=== PATIENT | male | born 1995 | race Hispanic/Latino ===

== ENCOUNTER 2018-02-10 02:04 | Emergency (ER) | payer SELFPAY ==
[2018-02-10] MEDS ORDERED: CLINDAMYCIN 600MG/D5W 600 MG/50 ML BAG IV ONE (02:56)
[2018-02-10 02:58] LABS: Absolute Lymphocytes (CBC) 2.2 K/uL (0.7-4.9); Absolute Neutrophil 8.6 K/uL (1.8-8.0); Basophils % 0.8 % (0-1.3); Eosinophils % 3.1 % (0-4.4); Hematocrit 44.6 % (39.6-49.0); Lymphocytes % 17.8 % (15.3-44.8); MPV 9.4 fL (7.6-11.3); Monocytes % 7.9 % (3.3-12.3); RBC Red Blood Cell Count 5.55 M/uL (4.33-5.43)
[2018-02-10 03:30] LABS: ALT/SGPT 26 U/L (12-78); AST/SGOT 18 U/L (15-37); Albumin 3.6 g/dL (3.4-5.0); Alkaline Phosphatase 95 U/L (45-117); BUN Blood Urea Nitrogen 21 mg/dL (7-18); Bicarbonate 25 mmol/L (21-32); Bilirubin Direct < 0.1 mg/dL (0-0.2); Bilirubin Total 0.2 mg/dL (0.2-1.0); Glucose Level 108 mg/dL (74-106); Potassium 4.4 mmol/L (3.5-5.1); Protein, Total 7.4 g/dL (6.4-8.2); Sodium Level 140 mmol/L (136-145)
--- NOTE | 2018-02-10 04:12 | EDPHYS ---
Physician Documentation [facility] Name: Anjum Farmer Age: 22 yrs Sex: Male : 1995 Arrival Date: 02/10/2018 Time: 02:07 Bed 5 Private MD: ED Physician Hany Saavedra HPI: 02/10 05:08 This 22 yrs old Male presents to ER via Wheelchair with complaints of Foot tw4 Injury, in a lot of pain. 05:08 The patient presents with an injury. The complaints affect the left foot. Context: The tw4 problem was sustained at work, resulted from a heavy object falling, industrial equipment, the patient can partially bear weight. Modifying factors: The symptoms are alleviated by nothing, the symptoms are aggravated by. Associated signs and symptoms: The patient has no apparent associated signs or symptoms. The patient has not experienced similar symptoms in the past. Historical: - Allergies: 02:24 No Known Allergies; jd3 - Home Meds: 02:24 None [Active]; jd3 - PMHx: 02:24 None; jd3 - PSHx: 02:24 None; jd3 - Immunization history:: Adult Immunizations unknown, Last tetanus immunization: unknown. - Social history:: Smoking status: Patient uses tobacco products, smokes one pack cigarettes per day. - Ebola Screening: : Patient negative for fever greater than or equal to 101.5 degrees Fahrenheit, and additional compatible Ebola Virus Disease symptoms. ROS: 05:08 MS/extremity: Positive for injury or acute deformity, contusion, decreased range of tw4 motion, Negative for abrasion. 05:08 Constitutional: Negative for fever, chills, and weight loss, Cardiovascular: Negative for chest pain, palpitations, and edema, Respiratory: Negative for shortness of breath, cough, wheezing, and pleuritic chest pain, Abdomen/GI: Negative for abdominal pain, nausea, vomiting, diarrhea, and constipation, Back: Negative for injury and pain, Neuro: Negative for headache, weakness, numbness, tingling, and seizure, Psych: Negative for depression, anxiety, suicide ideation, homicidal ideation, and hallucinations. 05:08 MS/extremity: Positive for Exam: 05:08 Constitutional: This is a well developed, well nourished patient who is awake, alert, tw4 and in no acute distress. Head/Face: Normocephalic, atraumatic. Chest/axilla: Normal chest wall appearance and motion. Nontender with no deformity. No lesions are appreciated. Cardiovascular: Regular rate and rhythm with a normal S1 and S2. No gallops, murmurs, or rubs. Normal PMI, no JVD. No pulse deficits. Respiratory: Lungs have equal breath sounds bilaterally, clear to auscultation and percussion. No rales, rhonchi or wheezes noted. No increased work of breathing, no retractions or nasal flaring. Abdomen/GI: Soft, non-tender, with normal bowel sounds. No distension or tympany. No guarding or rebound. No evidence of tenderness throughout. 05:08 Musculoskeletal/extremity: Extremities: grossly normal except: noted in the right fifth toe and Right fifth toenail: contusion, pain. 05:08 Musculoskeletal/extremity: Extremities: decreased ROM, erythema. tw4 Vital Signs: 02:25 BP 169 / 105; Pulse 105; Resp 16 S; Temp 97.8(O); Pulse Ox 97% on R/A; Weight 99.79 kg jd3 (R); Height 5 ft. 10 in. (177.80 cm) (R); Pain 2/10; 03:25 BP 159 / 89; Pulse 93; Resp 17 S; Pulse Ox 100% on R/A; jd3 04:12 BP 149 / 92; Pulse 95; Resp 17 S; Pulse Ox 97% on R/A; jd3 02:25 Body Mass Index 31.57 (99.79 kg, 177.80 cm) jd3 MDM: 02:12 Patient medically screened. tw4 05:08 Differential diagnosis: fracture, penetrating trauma, cellulitis. Data reviewed: vital tw4 signs, nurses notes. Data interpreted: Pulse oximetry: Interpretation: normal. 05:19 Counseling: I had a detailed discussion with the patient and/or guardian regarding: the tw4 historical points, exam findings, and any diagnostic results supporting the discharge/admit diagnosis. Special discussion: I discussed with the patient/guardian in detail that at this point there is no indication for admission to the hospital. It is understood, however, that if the symptoms persist or worsen the patient needs to return immediately for re-evaluation. 02/10 02:29 Order name: Basic Metabolic Panel tw4 02/10 02:29 Order name: Blood Culture Adult (2) tw4 02/10 02:29 Order name: CBC with Diff; Complete Time: 04:12 tw4 02/10 04:12 Interpretation: Normal except: WBC 12.2; RBC 5.55; MCH 26.6. tw4 02/10 02:29 Order name: Lactate tw4 02/10 02:29 Order name: LFT's; Complete Time: 04:12 tw4 02/10 04:12 Interpretation: Normal except: GLOB 3.8; A/G 0.9. tw4 02/10 02:29 Order name: Procalcitonin tw4 02/10 02:23 Order name: XRAY Foot RIGHT 2 View jd3 02/10 02:29 Order name: EKG - Nurse/Tech; Complete Time: 02:42 tw4 02/10 02:29 Order name: IV Saline Lock - Large Bore; Complete Time: 02:42 tw4 02/10 02:29 Order name: Labs collected and sent; Complete Time: 02:42 tw4 Administered Medications: 02:51 Drug: Clindamycin 600 mg Route: IVPB; Infused Over: 30 mins; Site: right antecubital; aa1 04:43 Follow up: Response: No adverse reaction; IV Status: Completed infusion ca1 04:24 Drug: TORadol 30 mg Route: IVP; Site: right antecubital; jd3 04:44 Follow up: Response: No adverse reaction ca1 Disposition: 02/10/18 04:11 Discharged to Home. Impression: Cellulitis of right lower limb. - Condition is Stable. - Discharge Instructions: Cellulitis, Adult, [id number]. - Prescriptions for Cleocin 300 mg Oral Capsule - take 1 capsule by ORAL route every 6 hours for 10 days; 40 capsule. - Medication Reconciliation Form, Thank You Letter, Antibiotic Education, Prescription Opioid Use form. - Follow up: Private Physician; When: Upon discharge from the Emergency Department; Reason: If symptoms return, Recheck today's complaints, Continuance of care. - Problem is new. - Symptoms have improved. Signatures: Dispatcher [employer] EDMS Gabriela Faulkner RN RN aa1 Dakota Beckford RN RN jd3 Hany Saavedra MD MD tw4 Dalila Jj RN RN ca1 Corrections: (The following items were deleted from the chart) 04:44 04:11 02/10/2018 04:11 Discharged to Home. Impression: Cellulitis of right lower limb. ca1 Condition is Stable. Forms are Medication Reconciliation Form, Thank You Letter, Antibiotic Education, Prescription Opioid Use. Follow up: Private Physician; When: Upon discharge from the Emergency Department; Reason: If symptoms return, Recheck today's complaints, Continuance of care. Problem is new. Symptoms have improved. tw4
--- NOTE | 2018-02-10 04:12 | ER ---
Nurse's Notes [facility] Name: Anjum Farmer Age: 22 yrs Sex: Male : 1995 Arrival Date: 02/10/2018 Time: 02:07 Bed 5 Private MD: Diagnosis: Cellulitis of right lower limb Presentation: 02/10 02:20 Presenting complaint: Patient states: "2 days ago I dropped a muffler on my right foot jd3 and today I noticed some blood through the bandage. it is swollen up.". Transition of care: patient was not received from another setting of care. Onset of symptoms was February 10, 2018. Risk Assessment: Do you want to hurt yourself or someone else? Patient reports no desire to harm self or others. Initial Sepsis Screen: Does the patient meet any 2 criteria? HR > 90 bpm. No. Patient's initial sepsis screen is negative. Does the patient have a suspected source of infection? Yes: Skin breakdown/wound. Care prior to arrival: None. 02:20 Method Of Arrival: Wheelchair jd3 02:20 Acuity: EZRA 3 jd3 Triage Assessment: 02:29 Injury Description: pt reports dropping muffler on right foot. jd3 Historical: - Allergies: 02:24 No Known Allergies; jd3 - Home Meds: 02:24 None [Active]; jd3 - PMHx: 02:24 None; jd3 - PSHx: 02:24 None; jd3 - Immunization history:: Adult Immunizations unknown, Last tetanus immunization: unknown. - Social history:: Smoking status: Patient uses tobacco products, smokes one pack cigarettes per day. - Ebola Screening: : Patient negative for fever greater than or equal to 101.5 degrees Fahrenheit, and additional compatible Ebola Virus Disease symptoms. Screenin:28 Abuse screen: Denies threats or abuse. Nutritional screening: No deficits noted. jd3 Tuberculosis screening: No symptoms or risk factors identified. Fall Risk Ambulatory Aid- None/Bed Rest/Nurse Assist (0 pts). Gait- Weak (10 pts.). Mental Status- Oriented to own ability (0 pts). Total Sharma Fall Scale indicates No Risk (0-24 pts). Assessment: 02:26 General: Appears uncomfortable, Behavior is calm, cooperative, appropriate for age. jd3 Pain: Complains of pain in right foot Quality of pain is described as aching, tender, Aggravated by increased activity, weight bearing. Neuro: Level of Consciousness is awake, alert, obeys commands, Oriented to person, place, time, situation. Cardiovascular: Capillary refill < 3 seconds Patient's skin is warm and dry. Respiratory: Airway is patent Respiratory effort is even, unlabored, Respiratory pattern is regular, symmetrical. GI: No signs and/or symptoms were reported involving the gastrointestinal system. : No signs and/or symptoms were reported regarding the genitourinary system. EENT: No signs and/or symptoms were reported regarding the EENT system. Derm: Skin is intact, Skin is dry, Skin is normal, Skin temperature is warm Wound noted right foot Wound is open, red, swollen, small amount of exudate noted. Musculoskeletal: Circulation, motion, and sensation intact. Range of motion:. 03:25 Reassessment: Patient appears in no apparent distress at this time. Patient and/or jd3 family updated on plan of care and expected duration. Pain level reassessed. Patient is alert, oriented x 3, equal unlabored respirations, skin warm/dry/pink. 04:12 Reassessment: Patient appears in no apparent distress at this time. Patient and/or jd3 family updated on plan of care and expected duration. Pain level reassessed. Patient is alert, oriented x 3, equal unlabored respirations, skin warm/dry/pink. 04:42 Reassessment: Patient appears in no apparent distress at this time. Patient and/or ca1 family updated on plan of care and expected duration. Pain level reassessed. Patient is alert, oriented x 3, equal unlabored respirations, skin warm/dry/pink. Vital Signs: 02:25 BP 169 / 105; Pulse 105; Resp 16 S; Temp 97.8(O); Pulse Ox 97% on R/A; Weight 99.79 kg [facility] (R); Height 5 ft. 10 in. (177.80 cm) (R); Pain 2/10; 03:25 BP 159 / 89; Pulse 93; Resp 17 S; Pulse Ox 100% on R/A; jd3 04:12 BP 149 / 92; Pulse 95; Resp 17 S; Pulse Ox 97% on R/A; jd3 02:25 Body Mass Index 31.57 (99.79 kg, 177.80 cm) [facility] ED Course: 02:07 Patient arrived in ED. es 02:12 Hany Saavedra MD is Attending Physician. tw4 02:14 Dakota Beckford, LASHON is Primary Nurse. jd3 02:22 Triage completed. jd3 02:26 Arm band placed on. jd3 02:29 Patient has correct armband on for positive identification. Bed in low position. Call j light in reach. Side rails up X 1. 02:34 X-ray completed. Portable x-ray completed in exam room. Patient tolerated procedure kw well. 02:35 XRAY Foot RIGHT 2 View In Process Unspecified. EDMS 02:43 EKG done, by ED staff, reviewed by Hany Saavedra MD. Inserted saline lock: 20 gauge mt in right antecubital area, using aseptic technique. Blood collected. 04:42 No provider procedures requiring assistance completed. IV discontinued, intact, ca1 bleeding controlled, No redness/swelling at site. Pressure dressing applied. Administered Medications: 02:51 Drug: Clindamycin 600 mg Route: IVPB; Infused Over: 30 mins; Site: right antecubital; aa1 04:43 Follow up: Response: No adverse reaction; IV Status: Completed infusion ca1 04:24 Drug: TORadol 30 mg Route: IVP; Site: right antecubital; jd3 04:44 Follow up: Response: No adverse reaction ca1 Outcome: 04:11 Discharge ordered by . tw4 04:43 Discharged to home via wheelchair, with friend. ca1 04:43 Condition: stable 04:43 Discharge instructions given to patient, Instructed on discharge instructions, follow up and referral plans. medication usage, Demonstrated understanding of instructions, follow-up care, medications, Prescriptions given X 1. 04:44 Patient left the ED. ca1 Signatures: Dispatcher [employer] EDMS Gabriela Faulkner RN RN aa1 Ainsley Quiroz Kimberlee kw Thompson, Moriah nh Dakota Beckford RN RN jd3 Wadley, Terrence, MD MD tw4 Dalila Jj RN RN ca1 Corrections: (The following items were deleted from the chart) 02:31 02:20 Initial Sepsis Screen: Does the patient meet any 2 criteria? No. Patient's jd3 initial sepsis screen is negative. Does the patient have a suspected source of infection? No. Patient's initial sepsis screen is negative. jd3
[2018-02-10] MEDS ORDERED: KETOROLAC 30 MG/ML INJ ONE (04:30)
--- NOTE | 2018-02-10 08:48 | RAD REPORT ---
EXAM DESCRIPTION: RAD - Foot Right 2 View - 02/10/2018 2:38 am CLINICAL HISTORY: SMASH INJURY Trauma COMPARISON: No comparisons FINDINGS: Soft tissue swelling is seen along the anterolateral right foot. No acute fracture or disl ocation identified.
--- NOTE | 2018-02-10 14:50 | EKG ---
Test Date: 2018-02-10 Test Time: 02:39:18 Tone Cabinet Assembler: LOLLY MEASUREMENT RESULTS: Intervals: Rate: 98 WY: 138 QRSD: 112 QT: 346 QTc: 441 [place]: P: 70 W[place]: 138 QRS: 36 T: 61 INTERPRETIVE STATEMENTS: Normal sinus rhythm Normal ECG No previous ECG available for comparison Electronically Signed On 02-10-18 14:50:07 [employer] by Reggie Dowling
== END 2018-02-10 04:44 | disposition home or self-care (01) ==
LOC: ER 02:04
DX: L03.116 Cellulitis of left lower limb (principal); W20.8XXA Other cause of strike by thrown, projected or falling object, initial encounter; Y99.0 Civilian activity done for income or pay; F17.210 Nicotine dependence, cigarettes, uncomplicated
CPT/HCPCS: 36415; 80048; 80076; 83605; 84145; 85025; 87040; 93005; 96365; 96366; 96375; 99284